=== PATIENT | female | born 1975 | race Caucasian/White ===

== ENCOUNTER 2017-10-06 13:03 | Emergency (ER) | payer OTHER ==
[~2017-10-06] VITALS: Ht 177.8 cm; Wt 90.7 kg
[~2017-10-06 13:03] MED LIST: AMBIEN10 MG; CLONAZEPAM1 MG PO; CODE1TAB37 PO; CYMBALTA20 MG; DALMANE30 MG PO; DICY20TA PO; DOLOGESIC 500-1 EACH PO; FIORICET 50-321 EACH PO; Mylicon 125MG PO; NEURONTIN600 MG PO; OSEL75CA PO; PLAQUENIL PO; PREDNISONE5 GM MC; PROVENTIL3 ML/2.5 M IH; SMZ-TMP DS 800-1 TAB PO; TAMOXIFEN CITRA20 MG; ULTRACET; ZYNCOF 20-400120 ML PO
[2017-10-06] MEDS ORDERED: TUSSI PRES-B L120 M1 PO (18:44)
[2017-10-06] MEDS ORDERED: ZITHROMAX TRI-500 MG PO (18:44)
== END 2017-10-06 18:47 | disposition home or self-care (01) ==
LOC: ER 13:03
DX: B34.9 Viral infection, unspecified (principal); J11.1 Influenza due to unidentified influenza virus with other respiratory manifestations